=== PATIENT | female | born 1945 | race African-American/Black ===

== ENCOUNTER → 2018-08-12 09:57 | Outpatient (CLI) | payer OTHER, MEDICARE ==
[2014-08-01 13:44] VITALS: BMI 40.0
[~2018-08-12 09:57] MED LIST: BENZTROPINE MESY1 MG PO; BYSTOLIC10 MG PO; GLIMEPIRIDE4 MG PO; GLUCOPHAGE850 MG PO; K-TAB10 MEQ PO; KEFLEX500 MG PO; LASIX20 MG PO; LISINOPRIL5 MG PO; NORVASC10 MG PO; PROAIR HFA8.5 GM INH; PROZAC20 MG PO; REMERON30 MG PO; RISPERDAL2 MG PO; TAMIFLU75 MG PO
== END | disposition home or self-care (01) ==
LOC: D.US 09:57
DX: D64.9 Anemia, unspecified (principal); Z68.37 Body mass index [BMI] 37.0-37.9, adult; I12.9 Hypertensive chronic kidney disease with stage 1 through stage 4 chronic kidney disease, or unspecified chronic kidney disease; N18.3 Chronic kidney disease, stage 3 (moderate); N25.81 Secondary hyperparathyroidism of renal origin

== ENCOUNTER → 2020-02-24 13:51 | Outpatient (CLI) | payer OTHER, MEDICARE ==
[2014-08-01 13:44] VITALS: BMI 40.0
== END | disposition home or self-care (01) ==
LOC: D.MAMMO 13:30
PROVIDERS: ATTEND Family Medicine
DX: Z12.31 Encounter for screening mammogram for malignant neoplasm of breast (principal)

== ENCOUNTER 2020-03-08 18:00 | Outpatient (CLI) | payer OTHER, MEDICARE ==
[2014-08-01 13:44] VITALS: BMI 40.0
== END 2020-03-08 23:59 | disposition home or self-care (01) ==
LOC: D.MAMMO 18:00
PROVIDERS: ATTEND Family Medicine
DX: R92.8 Other abnormal and inconclusive findings on diagnostic imaging of breast (principal)

== ENCOUNTER 2020-12-19 13:30 | Outpatient (CLI) | payer OTHER, MEDICARE ==
[2014-08-01 13:44] VITALS: BMI 40.0
== END 2020-12-19 23:59 | disposition home or self-care (01) ==
LOC: D.MAMMO 13:30
PROVIDERS: ATTEND Nurse Practitioner Family
DX: R92.8 Other abnormal and inconclusive findings on diagnostic imaging of breast (principal)